=== PATIENT | female | born 1935 | race Caucasian/White ===

== ENCOUNTER → 2016-08-16 | Outpatient (CLI) | payer OTHER, BC ==
[~2016-08-16] MED LIST: ACET-1311 PO; ALBU1AER9 INH; CETI10TA84 PO; FLUT1INH INH; GENTAMYCIN NAE; LATA0.009 OPR; LEVO50TA6 PO; LSX20 PO; MULT-845 PO; OMAL150S SC; WARF2TAB PO
--- NOTE | 2016-08-16 11:46 | DIAGNOSTIC IMAGING REPORT ---
C-SPINE ROUTINE 4 OR 5 VIEWS CLINICAL HISTORY: Right-sided neck stiffness. COMPARISON STUDY: No previous studies for comparison. FINDINGS: C7 is partially obscured on this exam. There is straightening of the normal cervical lordosis. There is marked disc space narrowing at C4-C5. There is moderate disc space narrowing at C5-C6 and C6-C7. Severe multilevel facet arthrosis is present. No acute fracture is identified within visualized portions of the cervical spine. There is at least moderate multilevel bony neural foraminal narrowing. 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 IMPRESSION: 1. Partial obscuration of C7. 2. Severe multilevel degenerative disc disease and facet arthrosis of the cervical spine. 3. No fracture within visualized portions of the cervical spine. Electronically signed by: John Church M.D. 08/16/2016 11:45 AM Dictated Date/Time: 08/16/2016 11:43 AM
--- NOTE | 2016-08-16 11:48 | DIAGNOSTIC IMAGING REPORT ---
CHEST 2 VIEWS ROUTINE CLINICAL HISTORY: Acute bronchitis. COMPARISON STUDY: Chest radiograph February 28, 2015. 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 There is mild S-shaped scoliosis of the thoracolumbar spine. Lung volumes are at the upper limits of normal. No pneumothorax or pleural effusion is identified. Mild bibasilar opacities favor atelectasis. There is no evidence of pulmonary edema. No consolidation is present. IMPRESSION: No acute cardiopulmonary findings. Electronically signed by: John Church M.D. 08/16/2016 11:46 AM Dictated Date/Time: 08/16/2016 11:46 AM
== END | disposition home or self-care (01) ==
LOC: C.RADBC 11:13
PROVIDERS: ATTEND Internal Medicine Pulmonary Disease
DX: J20.9 Acute bronchitis, unspecified (principal); M50.30 Other cervical disc degeneration, unspecified cervical region

== ENCOUNTER → 2016-11-13 | Outpatient (CLI) | payer OTHER, BC ==
--- NOTE | 2016-11-14 14:36 | MAMMOGRAPHY REPORT ---
BILATERAL DIGITAL SCREENING MAMMOGRAM WITH CAD: 11/13/2016 CLINICAL HISTORY: Routine screening. TECHNIQUE: Bilateral CC, MLO and repeat right cc views were obtained. Current study was also evalua rhonda with a Computer Aided Detection (CAD) system. COMPARISON: Comparison is made to exams dated: 11/10/2015 mammogram, 11/04/2014 mammogram, 10/29/2013 mammogram, 10/10/2012 mammogram, 10/09/2011 mammogram, and 10/10/2010 ultrasound - [facility]. BREAST COMPOSITION: There are scattered areas of fibroglandular density in both breasts. FINDINGS: There are mild vascular calcifications and a few scattered benign-appearing coarse calcifi cations in the breasts. A 6 mm nodular asymmetry in the superior middle one third of the left breas t on the MLO view appears similar on all available prior mammograms dating back to at least 05/31/20 09, therefore likely benign. No new suspicious mass, architectural distortion or cluster of microca lcifications is seen. IMPRESSION: ACR BI-RADS CATEGORY 1: NEGATIVE 1. Stable mammographic appearance of the breasts, without mammographic evidence of malignancy. 2. At the time of this screening mammography appointment the patient reported new right nipple inve rsion and milky discharge. Although there are no new mammographic findings or a new suspicious mass causing right nipple inversion, complete workup includes a diagnostic appointment involving targete d ultrasound and possible additional mammographic views. Therefore, clinical correlation is needed and if this is truly a new finding, additional diagnostic workup is recommended. Otherwise, a 1 year screening mammogram is recommended. The patient will receive written notification of the results. Approximately 10% of breast cancers are not detected with mammography. A negative mammographic repor t should not delay biopsy if a clinically suggestive mass is present. Brianne Saunders M.D. ay/:11/13/2016 17:28:47 Cigar Machine Feeder: Keyana BOO)(Sylwia), [facility] letter sent: Normal 1/2 BI-RADS Code: ACR BI-RADS Category 1: Negative
== END | disposition home or self-care (01) ==
LOC: C.MAMM 10:13
PROVIDERS: ATTEND Physician Assistant
DX: Z12.31 Encounter for screening mammogram for malignant neoplasm of breast (principal)

== ENCOUNTER → 2016-11-16 | Outpatient (CLI) | payer OTHER, BC ==
[2016-11-16 09:34] LABS: BASO % 0.5 %; BASO ABS # 0.04 K/uL (0-0.2); COMPLETE YES; EOS % 23.8 %; HEMATOCRIT 43.2 % (37-47); IG% 0.1 %; LYMPH % 25.9 %; LYMPH ABS # 2.26 K/uL (1.2-3.4); MEAN CELL VOLUME 97.7 fL (80-100); MEAN CORPUSCULAR HEMOGLOBIN 32.6 pg (25-34); MEAN CORPUSCULAR HGB CONC 33.3 g/dl (32-36); MEAN PLATELET VOLUME 9.4 fL (7.4-10.4); MONO % 5.7 %; PLATELET COUNT 271 K/uL (130-400); RED BLOOD COUNT 4.42 M/uL (4.2-5.4); WHITE BLOOD COUNT 8.73 K/uL (4.8-10.8)
[2016-11-16 09:48] LABS: ALT/SGPT 26 U/L (12-78); BLOOD UREA NITROGEN 16 mg/dl (7-18); BUN/CREATININE RATIO 22.8 (10-20); CARBON DIOXIDE 28 mmol/L (21-32); CHLORIDE 107 mmol/L (98-107); CHOLESTEROL 197 mg/dl (0-200); CREATININE 0.71 mg/dl (0.60-1.20); GLUCOSE 97 mg/dl (70-99); POTASSIUM 3.6 mmol/L (3.5-5.1); SODIUM 141 mmol/L (136-145); TRIGLYCERIDES 105 mg/dl (0-150); VERY LOW DENSITY LIPOPROT CALC 21 mg/dl
[2016-11-16 09:51] LABS: CALCIUM 9.4 mg/dl (8.5-10.1)
[2016-11-16 09:57] LABS: ALB/GLOB RATIO 1.1 (0.9-2); ALKALINE PHOSPHATASE 112 U/L (45-117); AST/SGOT 20 U/L (15-37); CHOLESTEROL/HDL RATIO 1.9; HDL CHOLESTEROL 104 mg/dl; LDL CHOLESTEROL CALCULATED 72 mg/dl; TOTAL IRON BINDING CAPACITY 256 mcg/dl (250-450)
--- NOTE | 2016-11-23 11:01 | CODING QUERY MEDICAL NECESSITY ---
CQSUPPORTING DIAGNOSIS NEEDED A supporting diagnosis is required for the test/procedure performed on this patient in order for us to be reimbursed by the patient's insurance. Please provide a supporting diagnosis for the following test/procedure listed below next to the test name along with your signature. *If there is no additional diagnosis for this patient that would support the following test/procedure please document that below next to the test/procedure. Test(s)/Procedure(s) that require a supporting diagnosis: DOS 11/16/16 VITAMIN B12 TEST VITAMIN D TEST TEST ORDERED BY PEGGY THOMAS Provider Signature: Date: Thank you Kendra Mast Health Information Management Once completed, please kindly fax back to [phone] For questions please call [phone]
== END | disposition home or self-care (01) ==
LOC: C.LAB1850 08:11
PROVIDERS: ATTEND Physician Assistant
DX: E03.9 Hypothyroidism, unspecified (principal); R06.2 Wheezing; J45.909 Unspecified asthma, uncomplicated

== ENCOUNTER → 2016-12-26 | Outpatient (CLI) | payer OTHER, BC ==
--- NOTE | 2016-12-26 13:14 | MAMMOGRAPHY REPORT ---
UNILATERAL RIGHT DIGITAL DIAGNOSTIC MAMMOGRAM AND TARGETED RIGHT ULTRASOUND: 12/26/2016 CLINICAL HISTORY: The patient reported at the time of her screening mammogram that she had right nipp le inversion and milky discharge. The patient reports that she has had right nipple inversion for ov er 2-3 years and possibly longer. She also reports a greater than one-year history of intermittent y ellow right nipple discharge. She denies any bloody nipple discharge. She had a workup in 2010 for right nipple discharge; when questioning the patient, she reports that this nipple discharge is simil ar to her episodes in 2010. TECHNIQUE: Spot magnification right cc and ML views were obtained. COMPARISON: Comparison is made to exams dated: 11/13/2016 mammogram, 11/10/2015 mammogram, 11/04/2014 m ammogram, 10/29/2013 mammogram, 10/10/2012 mammogram, and 10/09/2011 mammogram - [facility] enter. BREAST COMPOSITION: There are scattered areas of fibroglandular density in the right breast. FINDINGS: Spot magnification views of the right subareolar breast demonstrate no suspicious masses o r calcifications or other suspicious findings. There is right nipple inversion, with appearance of t he nipple similar to some of the prior exams including the 2009 exam. Targeted ultrasound was performed of the right subareolar breast. No intraductal masses or other luther picious sonographic abnormalities are evident. IMPRESSION: ACR BI-RADS CATEGORY 2: BENIGN, TARGETED ULTRASOUND ACR BI-RADS CATEGORY 2: BENIGN No intraductal masses or other suspicious mammographic or sonographic abnormality to explain right ni pple discharge and nipple inversion. There is no mammographic or targeted sonographic evidence of ma lignancy. Recommend clinical follow-up for right nipple discharge and nipple inversion, and recommen d routine bilateral screening mammograms in one year. The patient has been verbally notified of the results. Approximately 10% of breast cancers are not detected with mammography. A negative mammographic report should not delay biopsy if a clinically suggestive mass is present. Rosangela Jose M.D. /:12/26/2016 11:38:23 Safety Instruction Police Officer: Arely HAAS(Carolyn)(Sylwia), [facility] letter sent: Normal 1/2 BI-RADS Code: ACR BI-RADS Category 2: Benign Ultrasound BI-RADS: ACR BI-RADS Category 2: Benign
== END | disposition home or self-care (01) ==
LOC: C.MAMM 11:03
PROVIDERS: ATTEND Physician Assistant
DX: N64.59 Other signs and symptoms in breast (principal); N64.52 Nipple discharge

== ENCOUNTER → 2017-04-15 | Outpatient (CLI) | payer OTHER, BC | END | disposition home or self-care (01) | LOC: C.RDSM 15:22 | PROVIDERS: ATTEND Physical Medicine & Rehabilitation Sports Medicine | DX: M17.0 Bilateral primary osteoarthritis of knee (principal) ==

== ENCOUNTER → 2017-05-20 | Outpatient (CLI) | payer OTHER, BC ==
--- NOTE | 2017-05-20 10:29 | DIAGNOSTIC IMAGING REPORT ---
CHEST 2 VIEWS ROUTINE HISTORY: 81 years-old Female R06.02 Shortness of [id number] acute shortness of breath COMPARISON: Chest radiograph 08/16/2016 TECHNIQUE: Frontal and lateral views of the chest FINDINGS: Cardiomediastinal and hilar silhouettes are within normal limits. Atherosclerosis of the aorta. No pneumothorax or large pleural effusion. Lungs are hyperinflated and hyperlucent suspicious for emphysema. Subtle subsegmental left greater than right bibasilar opacities are noted. Multilevel degenerative changes of the spine with dextroscoliosis. Bilateral shoulder arthroplasties. IMPRESSION: Mild subsegmental bibasilar opacities suggest atelectasis or pneumonia. The above report was generated using voice recognition software. It may contain grammatical, syntax or spelling errors. Electronically signed by: Ned Gutierrez M.D. 05/20/2017 10:28 AM Dictated Date/Time: 05/20/2017 10:25 AM
[2017-05-20 10:58] LABS: BASO % 0.2 %; BASO ABS # 0.02 K/uL (0-0.2); COMPLETE YES; EOS % 6.2 %; HEMATOCRIT 44.4 % (37-47); IG% 0.5 %; LYMPH % 21.1 %; LYMPH ABS # 2.29 K/uL (1.2-3.4); MEAN CELL VOLUME 98.2 fL (80-100); MEAN CORPUSCULAR HGB CONC 33.6 g/dl (32-36); MEAN PLATELET VOLUME 9.3 fL (7.4-10.4); MONO % 7.1 %; NEUT % 64.9 %; PLATELET COUNT 281 K/uL (130-400); RED BLOOD COUNT 4.52 M/uL (4.2-5.4); WHITE BLOOD COUNT 10.83 K/uL (4.8-10.8)
[2017-05-23 23:01] LABS: FUNGITELL (1-3)-B-D-GLUCAN* <31 pg/mL; FUNGITELL INTERP NEGATIVE; IMMUNOGLOBULIN E TC 24620E 2792 KU/L (<115)
== END | disposition home or self-care (01) ==
LOC: C.RAD1850 10:02
PROVIDERS: ATTEND Internal Medicine Pulmonary Disease
DX: R06.02 Shortness of breath (principal)

== ENCOUNTER → 2017-08-27 | Outpatient (CLI) | payer OTHER, BC ==
[2017-08-27 12:09] LABS: BASO % 0.3 %; BASO ABS # 0.03 K/uL (0-0.2); EOS % 3.6 %; HEMATOCRIT 44.7 % (37-47); HEMOGLOBIN 14.8 g/dL (12.0-16.0); IG# 0.08 K/uL (0.00-0.02); LYMPH % 27.6 %; LYMPH ABS # 3.07 K/uL (1.2-3.4); MEAN CELL VOLUME 98.5 fL (80-100); MEAN CORPUSCULAR HEMOGLOBIN 32.6 pg (25-34); MEAN CORPUSCULAR HGB CONC 33.1 g/dl (32-36); MEAN PLATELET VOLUME 9.7 fL (7.4-10.4); MONO % 8.7 %; MONO ABS # 0.97 K/uL (0.11-0.59); NEUT % 59.1 %; NEUT ABS # 6.58 K/uL (1.4-6.5); PLATELET COUNT 256 K/uL (130-400); RED CELL DISTRIBUTION WIDTH CV 14.5 % (11.5-14.5); RED CELL DISTRIBUTION WIDTH SD 51.6 fL (36.4-46.3); WHITE BLOOD COUNT 11.13 K/uL (4.8-10.8)
[2017-08-27 12:29] LABS: ALBUMIN 3.8 gm/dl (3.4-5.0); BLOOD UREA NITROGEN 14 mg/dl (7-18); CALCIUM 9.1 mg/dl (8.5-10.1); CARBON DIOXIDE 31 mmol/L (21-32); CREATININE 0.76 mg/dl (0.60-1.20); GLUCOSE 90 mg/dl (70-99); POTASSIUM 3.9 mmol/L (3.5-5.1); SODIUM 138 mmol/L (136-145)
[2017-08-27 12:34] LABS: ALKALINE PHOSPHATASE 89 U/L (45-117); ALT/SGPT 26 U/L (12-78); AST/SGOT 16 U/L (15-37); TOTAL PROTEIN 7.2 gm/dl (6.4-8.2)
== END | disposition home or self-care (01) ==
LOC: C.LAB1850 10:15
PROVIDERS: ATTEND Internal Medicine Pulmonary Disease
DX: J45.909 Unspecified asthma, uncomplicated (principal)

== ENCOUNTER → 2017-11-14 | Outpatient (CLI) | payer OTHER, BC ==
--- NOTE | 2017-11-18 07:50 | MAMMOGRAPHY REPORT ---
BILATERAL DIGITAL SCREENING MAMMOGRAM TOMOSYNTHESIS WITH CAD: 11/14/2017 CLINICAL HISTORY: Routine screening. TECHNIQUE: Breast tomosynthesis in addition to standard 2D mammography was performed. Current study was also evaluated with a Computer Aided Detection (CAD) system. COMPARISON: Comparison is made to exams dated: 12/26/2016 mammogram, 11/10/2015 mammogram, 11/13/2016 ma mmogram, 11/04/2014 mammogram, 10/29/2013 mammogram, and 10/10/2012 mammogram - [facility]ter. BREAST COMPOSITION: There are scattered areas of fibroglandular density in both breasts. FINDINGS: No suspicious masses, calcifications, or areas of architectural distortion are noted in ei ther breast. There has been no significant interval change compared to prior exams. Scattered bilate ral benign-appearing calcifications are not significantly changed. 5 mm nodular asymmetry within the left superior breast on the MLO view is stable dating back to at least the 2008 exam and considered benign given long-term stability. IMPRESSION: ACR BI-RADS CATEGORY 2: BENIGN There is no mammographic evidence of malignancy. A 1 year screening mammogram is recommended. The pa tient will receive written notification of the results. Approximately 10% of breast cancers are not detected with mammography. A negative mammographic report should not delay biopsy if a clinically suggestive mass is present. Rosangela Jose M.D. ah/:11/14/2017 14:37:25 Magnetometer Operator: Mary BOO)(Sylwia), [facility] letter sent: Normal 1/2 BI-RADS Code: ACR BI-RADS Category 2: Benign
== END | disposition home or self-care (01) ==
LOC: C.MAMM 10:33
PROVIDERS: ATTEND Physician Assistant
DX: Z12.31 Encounter for screening mammogram for malignant neoplasm of breast (principal)